=== PATIENT | male | born 1970 | race Caucasian/White ===

== ENCOUNTER → 2025-01-21 20:09 | Outpatient (REF) | payer BC, SELFPAY | LOC: MRI 3T 20:09 | PROVIDERS: ATTENDING PHYSICIAN Physician Assistant Surgical; FAMILY PHYSICIAN Psychiatry & Neurology Neurology | DX: M25.521 Pain in right elbow (principal); R22.31 Localized swelling, mass and lump, right upper limb | CPT/HCPCS: 73223 ==

== ENCOUNTER 2025-02-17 06:30 | Day surgery (SDC) | payer BC, SELFPAY ==
[2025-02-03 14:34] VITALS: BMI 23.4
[2025-02-17] VITALS (7 sets, daily range): BP systolic 100–153; BP diastolic 59–99; BMI 23.4
[2025-02-17] MEDS: CELEBREX 200 MG PO (15:28)
[2025-02-17] MEDS: TYLENOL 1000 MG PO (15:28)
[2025-02-17] MEDS: NORMOSOL-R/PLASMALYTE-A 1000 IV (15:35)
[2025-02-17] MEDS: DILAUDID 0.5 MG IV ×2 (19:52→20:05)
[2025-02-17] MEDS: ROXICODONE 5 MG PO (20:30)
== END 2025-02-17 21:00 | disposition home or self-care (01) ==
LOC: SDS 06:30
PROVIDERS: ATTENDING PHYSICIAN Orthopaedic Surgery; FAMILY PHYSICIAN Internal Medicine
DX: M77.11 Lateral epicondylitis, right elbow (principal); D17.21 Benign lipomatous neoplasm of skin and subcutaneous tissue of right arm
CPT/HCPCS: 24359; 11400; 20999; 36415; 88304; 93005; C1713